=== PATIENT | female | born 1950 | race Caucasian/White ===

== ENCOUNTER 2017-04-03 09:18 | Outpatient (CLI) | payer MEDICARE, OTHER | END 2017-04-03 09:19 | disposition home or self-care (01) | LOC: RT 09:18 | PROVIDERS: ATTEND Internal Medicine | DX: R00.2 Palpitations (principal) | CPT/HCPCS: 93005 ==

== ENCOUNTER 2017-04-27 14:06 | Emergency (ER) | payer MEDICARE, OTHER ==
--- NOTE | 2017-04-27 14:47 | ED Physician Documentation ---
History of Present Illness - Stated complaint Stated Complaint: RAPID HR - Chief complaint Chief Complaint: Cardiac - History obtained from History obtained from: Patient, Family - History of Present Illness Pain level max: 0 Pain level now: 0 Improved by: nothing Worsened by: nothing - Additonal information Additional information: States known history of Afib for 3 years. Is on aspiring and is scheduled to start coumadin or xarelto depending on which is covered by her insurance, has rx but not filled yet. Scheduled echocardiogram on . States has Afib daily. States symptoms started at 0830 today. +fatigue, nausea, lightheaded. no CP. + SOB with exertion. Review of Systems Ten Systems: 10 systems reviewed and negative Constitutional: denies: Fever, Chills Throat: denies: Sore throat Cardiac: denies: Chest pain / pressure, Pedal edema, Calf pain Respiratory: denies: Cough, Wheezing GI: denies: Nausea, Vomiting, Diarrhea : denies: Dysuria Skin: denies: Rash Musculoskeletal: denies: Neck pain, Back pain Neurologic: denies: Focal weakness, Numbness, Headache PD PAST MEDICAL HISTORY - Past Medical History Past Medical History: Yes Cardiovascular: Atrial fibrillation, Murmur Neuro: Tremors - Past Surgical History General: Cholecystectomy HEENT: Tonsil/Adenoidectomy - Present Medications Home Medications: Ambulatory Orders Medication Instructions Recorded Confirmed Aspirin 325 mg PO DAILY 04/27/17 04/27/17 Cholecalciferol (Vitamin D3) 10,000 units PO DAILY 04/27/17 04/27/17 [Vitamin D3] - Allergies Allergies/Adverse Reactions: Allergies Allergy/AdvReac Type Severity Reaction Status Date / Time Penicillins Allergy Rash Verified 04/27/17 14:14 - Social History Does the pt smoke?: No Smoking Status: Never smoker Does the pt drink ETOH?: Yes Does the pt have substance abuse?: No Substance Use and Type: Marijuana - Immunizations Immunizations are current?: Yes PD ED PE NORMAL - Vitals Vital signs reviewed: Yes - General General: Alert and oriented X 3, No acute distress, Well developed/nourished - HEENT HEENT: PERRL, Moist mucous membranes - Neck Neck: Supple, no meningeal sign - Cardiac Cardiac: Other (irregular) - Respiratory Respiratory: No respiratory distress, Clear bilaterally - Abdomen Abdomen: Soft, Non tender, Non distended - Derm Derm: Warm and dry, No rash - Extremities Extremities: No edema, No calf tenderness / cord - Neuro Neuro: Alert and oriented X 3 - Psych Psych: Normal mood, Normal affect Results - Vitals Vitals: Vital Signs - 24 hr 04/27/17 04/27/17 04/27/17 14:10 14:54 15:29 Temperature 36.3 C L Heart Rate 70 120 H 82 Respiratory 16 20 20 Rate Blood Pressure 148/77 H 123/78 116/57 L O2 Saturation 99 100 100 04/27/17 04/27/17 15:59 16:15 Temperature 36.6 C Heart Rate 60 54 L Respiratory 18 22 Rate Blood Pressure 124/72 111/57 L O2 Saturation 100 100 Oxygen O2 Source Room air - EKG (time done) 1432 Rate: Rate (enter#) (95) Rhythm: Atrial fibrillation [place]: Normal QRS: Normal Ischemia: Normal ST segments 1604 Rate: Rate (enter#) (62) Rhythm: NSR [place]: Normal Intervals: Normal [place] QRS: Normal Ischemia: Normal ST segments Computer interpretation: Agree with computer - Labs Labs: Laboratory Tests 04/27/17 04/27/17 04/27/17 14:15 14:15 14:15 WBC 4.4 L RBC 4.64 Hgb 14.1 Hct 41.7 MCV 89.9 MCH 30.3 MCHC 33.8 RDW 13.9 Plt Count 118 L MPV 11.1 H Neut # 2.0 Lymph # 1.8 Door # 0.4 Eos # 0.1 Baso # 0.0 Absolute Nucleated RBC 0.00 Nucleated RBCs 0.1 Sodium 141 Potassium 4.0 Chloride 105 Carbon Dioxide 29 Anion Gap 7.0 BUN 17 Creatinine 0.9 Estimated GFR (MDRD) 63 L Glucose 111 H Calcium 9.2 Total Bilirubin 0.8 AST 25 ALT 21 Alkaline Phosphatase 65 Troponin I < 0.04 Total Protein 6.8 Albumin 4.2 Globulin 2.6 Albumin/Globulin Ratio 1.6 Lipase 17 L - Rads (name of study) cxr Radiology: Prelim report reviewed, EMP read contemporaneously, See rad report ( Normal single view chest. ) PD MEDICAL DECISION MAKING - ED course Complexity details: reviewed results, re-evaluated patient, considered differential, d/w patient, d/w family ED course: Patient is a 67-year-old female with a history of paroxysmal atrial fibrillation. She is normally in sinus rhythm, sinus bradycardia. She is currently undergoing evaluation for her atrial fibrillation and has an echocardiogram scheduled early next week. Because of her history of bradycardia , we chose to use procainamide and this converted her back to a normal sinus rhythm. Her symptoms resolved. She is very well-appearing, nontoxic. Afebrile. No evidence of acute CT. No evidence of acute coronary syndrome. We will have her follow-up with her doctor for further evaluation and care. Patient counseled regarding signs and symptoms for which I believe and urgent re -evaluation would be necessary. Patient with good understanding of and agreement to plan and is comfortable going home at this time This document was made in part using voice recognition software. While efforts are made to proofread this document, sound alike and grammatical errors may occur. Departure - Departure Disposition: 01 Home, Self Care Clinical Impression: Atrial fibrillation Qualifiers: Atrial fibrillation type: paroxysmal Qualified Code(s): I48.0 - Paroxysmal atrial fibrillation Condition: Good Instructions: ED Afib Follow-Up: DOTTY MEJIA MD [Primary Care Provider] - Within 1 week Comments: Make sure to follow up with your doctor for further care of your atrial fibrillation. Discharge Date/Time: 04/27/17 16:21
[2017-04-27] MEDS ORDERED: PROCAINAMIDE 1,000 MG in SODIUM CHLORIDE 0.9% 240 ML IV STA (14:58)
[2017-04-27 15:06] LABS: BASOPHILS % (AUTO) 1.1 %; EOSINOPHILS # (AUTO) 0.1 10^3/uL (0.0-0.7); EOSINOPHILS % (AUTO) 1.8 %; HCT - HEMATOCRIT 41.7 % (37.0-47.0); HGB - HEMOGLOBIN 14.1 g/dL (12.0-16.0); LYMPHOCYTES # (AUTO) 1.8 10^3/uL (1.5-3.5); LYMPHOCYTES % (AUTO) 41.2 %; MEAN CORPUSCULAR HEMOGLOBIN 30.3 pg (27.0-31.0); MEAN CORPUSCULAR HGB CONC 33.8 g/dL (32.0-36.0); MEAN CORPUSCULAR VOLUME 89.9 fL (81.0-99.0); MEAN PLATELET VOLUME 11.1 fL (7.9-10.8); MONOCYTES # (AUTO) 0.4 10^3/uL (0.0-1.0); MONOCYTES % (AUTO) 9.3 %; NEUTROPHILS % (AUTO) 46.6 %; NUCLEATED RED BLOOD CELLS AUTO 0.1 /100WBC; RED BLOOD COUNT 4.64 10^6/uL (4.20-5.40); RED CELL DISTRIBUTION WIDTH 13.9 % (12.0-15.0); UNCORRECTED WHITE BLOOD COUNT 4.4 x10^3/uL; WHITE BLOOD COUNT 4.4 x10^3/uL (4.8-10.8)
[2017-04-27 15:13] LABS: ALBUMIN/GLOBULIN RATIO 1.6 (1.0-2.2); BILIRUBIN,TOTAL 0.8 mg/dL (0.2-1.0); CALCIUM 9.2 mg/dL (8.5-10.3); CREATININE 0.9 mg/dL (0.4-1.0); TOTAL PROTEIN 6.8 g/dL (6.7-8.2)
--- NOTE | 2017-04-27 15:26 | XRAY Preliminary Report ---
Exam: XR Chest 1 View IMPRESSION: Normal single view chest. [facility] SITE ID: [id number]
--- NOTE | 2017-04-27 15:28 | XRAY Report ---
EXAM: CHEST RADIOGRAPHY EXAM DATE: 04/27/2017 03:10 PM. CLINICAL HISTORY: Dyspnea. COMPARISON: None. TECHNIQUE: 1 view. FINDINGS: Lungs/Pleura: No focal opacities evident. No pleural effusion. No pneumothorax. No significant pulmon megan vascular congestion or edema. Mediastinum: Within exam limitations, cardiomediastinal contour is normal. Other: None. IMPRESSION: Normal single view chest. [facility] Referring Provider Line: [phone] SITE ID: [id number]
[2017-04-27 16:17] VITALS: BP 111/57
== END 2017-04-27 16:21 | disposition home or self-care (01) ==
LOC: ED 14:06
DX: I48.0 Paroxysmal atrial fibrillation (principal); R94.31 Abnormal electrocardiogram [ECG] [EKG]; R25.1 Tremor, unspecified; Z79.82 Long term (current) use of aspirin
CPT/HCPCS: 36415; 71010; 80053; 83690; 84484; 85025; 93005; 96374; 99283; 99285

== ENCOUNTER 2017-04-30 11:06 | Outpatient (CLI) | payer MEDICARE, OTHER | END 2017-04-30 11:07 | disposition home or self-care (01) | LOC: LAB.F 11:06 | PROVIDERS: ATTEND Internal Medicine | DX: I48.91 Unspecified atrial fibrillation (principal) | CPT/HCPCS: 85610 ==

== ENCOUNTER 2017-05-01 09:18 | Outpatient (CLI) | payer MEDICARE, OTHER | END 2017-05-01 09:19 | disposition home or self-care (01) | LOC: DI 09:18 | PROVIDERS: ATTEND Internal Medicine | DX: I48.91 Unspecified atrial fibrillation (principal) | CPT/HCPCS: 93306 ==

== ENCOUNTER 2017-05-04 11:06 | Outpatient (CLI) | payer MEDICARE, OTHER | END 2017-05-04 11:07 | disposition home or self-care (01) | LOC: LAB.F 11:06 | PROVIDERS: ATTEND Internal Medicine | DX: I48.91 Unspecified atrial fibrillation (principal) | CPT/HCPCS: 85610 ==

== ENCOUNTER 2017-05-09 14:52 | Outpatient (CLI) | payer MEDICARE, OTHER | END 2017-05-09 14:53 | disposition home or self-care (01) | LOC: LAB.F 14:52 | PROVIDERS: ATTEND Internal Medicine | DX: I48.91 Unspecified atrial fibrillation (principal) | CPT/HCPCS: 85610 ==

== ENCOUNTER 2017-05-18 14:05 | Outpatient (CLI) | payer MEDICARE, OTHER | END 2017-05-18 14:06 | disposition home or self-care (01) | LOC: LAB.F 14:05 | PROVIDERS: ATTEND Internal Medicine | DX: I48.91 Unspecified atrial fibrillation (principal) | CPT/HCPCS: 85610 ==

== ENCOUNTER 2017-05-25 15:12 | Outpatient (CLI) | payer MEDICARE, OTHER | END 2017-05-25 15:13 | disposition home or self-care (01) | LOC: LAB.F 15:12 | PROVIDERS: ATTEND Internal Medicine | DX: I48.91 Unspecified atrial fibrillation (principal) | CPT/HCPCS: 85610 ==

== ENCOUNTER 2017-06-05 13:05 | Outpatient (CLI) | payer MEDICARE, OTHER | END 2017-06-05 13:06 | disposition home or self-care (01) | LOC: LAB.F 13:05 | PROVIDERS: ATTEND Internal Medicine | DX: I48.91 Unspecified atrial fibrillation (principal) | CPT/HCPCS: 85610 ==

== ENCOUNTER 2017-06-14 13:30 | Outpatient (CLI) | payer MEDICARE, OTHER | END 2017-06-14 13:31 | disposition home or self-care (01) | LOC: LAB.F 13:30 | PROVIDERS: ATTEND Internal Medicine | DX: I48.91 Unspecified atrial fibrillation (principal) | CPT/HCPCS: 85610 ==

== ENCOUNTER 2017-06-19 10:29 | Outpatient (CLI) | payer MEDICARE, OTHER | END 2017-06-19 10:30 | disposition home or self-care (01) | LOC: RT 10:29 | PROVIDERS: ATTEND Internal Medicine Cardiovascular Disease | DX: I48.0 Paroxysmal atrial fibrillation (principal) | CPT/HCPCS: 93005 ==

== ENCOUNTER 2017-06-21 15:06 | Outpatient (CLI) | payer MEDICARE, OTHER | END 2017-06-21 15:07 | disposition home or self-care (01) | LOC: LAB.F 15:06 | PROVIDERS: ATTEND Internal Medicine | DX: I48.91 Unspecified atrial fibrillation (principal) | CPT/HCPCS: 85610 ==

== ENCOUNTER 2017-07-16 14:53 | Outpatient (CLI) | payer MEDICARE, OTHER | END 2017-07-16 14:54 | disposition home or self-care (01) | LOC: LAB.F 14:53 | PROVIDERS: ATTEND Internal Medicine | DX: I48.91 Unspecified atrial fibrillation (principal) | CPT/HCPCS: 85610 ==

== ENCOUNTER 2017-08-16 13:29 | Outpatient (CLI) | payer MEDICARE, OTHER | END 2017-08-16 13:30 | disposition home or self-care (01) | LOC: LAB.F 13:29 | PROVIDERS: ATTEND Internal Medicine | DX: I48.91 Unspecified atrial fibrillation (principal) | CPT/HCPCS: 85610 ==

== ENCOUNTER 2017-08-28 13:01 | Outpatient (CLI) | payer MEDICARE, OTHER | END 2017-08-28 13:02 | disposition home or self-care (01) | LOC: LAB.F 13:01 | PROVIDERS: ATTEND Internal Medicine | DX: I48.91 Unspecified atrial fibrillation (principal) | CPT/HCPCS: 85610 ==

== ENCOUNTER 2017-09-25 13:03 | Outpatient (CLI) | payer MEDICARE, OTHER | END 2017-09-25 13:04 | disposition home or self-care (01) | LOC: LAB.F 13:03 | PROVIDERS: ATTEND Internal Medicine | DX: I48.91 Unspecified atrial fibrillation (principal) | CPT/HCPCS: 85610 ==

== ENCOUNTER 2017-11-21 10:52 | Outpatient (CLI) | payer MEDICARE, OTHER | END 2017-11-21 10:53 | disposition home or self-care (01) | LOC: LAB.F 10:52 | PROVIDERS: ATTEND Internal Medicine | DX: I48.91 Unspecified atrial fibrillation (principal) | CPT/HCPCS: 85610 ==

== ENCOUNTER 2018-01-11 11:53 | Outpatient (CLI) | payer MEDICARE, OTHER | END 2018-01-11 11:54 | disposition home or self-care (01) | LOC: LAB.F 11:53 | PROVIDERS: ATTEND Internal Medicine | DX: I48.91 Unspecified atrial fibrillation (principal) | CPT/HCPCS: 85610 ==

== ENCOUNTER 2018-01-17 13:05 | Outpatient (CLI) | payer MEDICARE, OTHER | END 2018-01-17 13:06 | disposition home or self-care (01) | LOC: RT 13:05 | PROVIDERS: ATTEND Internal Medicine Cardiovascular Disease | DX: I48.91 Unspecified atrial fibrillation (principal) | CPT/HCPCS: 93005 ==

== ENCOUNTER 2018-02-04 11:54 | Outpatient (CLI) | payer MEDICARE, OTHER | END 2018-02-04 11:55 | disposition home or self-care (01) | LOC: LAB.F 11:54 | PROVIDERS: ATTEND Internal Medicine | DX: I48.91 Unspecified atrial fibrillation (principal) | CPT/HCPCS: 85610 ==

== ENCOUNTER 2018-02-12 15:09 | Outpatient (CLI) | payer MEDICARE, OTHER | END 2018-02-12 15:10 | disposition home or self-care (01) | LOC: LAB.F 15:09 | PROVIDERS: ATTEND Internal Medicine | DX: I48.91 Unspecified atrial fibrillation (principal) | CPT/HCPCS: 85610 ==

== ENCOUNTER 2018-02-20 11:16 | Outpatient (CLI) | payer MEDICARE, OTHER ==
--- NOTE | 2018-02-21 10:53 | XRAY Report ---
THREE VIEW BILATERAL FEET: 02/20/2018 CLINICAL INDICATION: Acute bilateral pain. FINDINGS: AP, lateral, oblique views of the bilateral feet demonstrate mild bilateral osteoarthritis, with plantar and posterior calcaneal spurring. There is no evidence of acute fracture or dislocation. No radiopaque foreign body is seen in the soft tissues. IMPRESSION: MILD OSTEOARTHRITIS. NO EVIDENCE OF FRACTURE. TD: 02/21/2018 10:52
== END 2018-02-20 11:17 | disposition home or self-care (01) ==
LOC: LAB.F 11:16
PROVIDERS: ATTEND Internal Medicine
DX: I48.91 Unspecified atrial fibrillation (principal); M79.672 Pain in left foot; M79.671 Pain in right foot
CPT/HCPCS: 85610

== ENCOUNTER 2018-02-28 11:49 | Outpatient (CLI) | payer MEDICARE, OTHER | END 2018-02-28 11:50 | disposition home or self-care (01) | LOC: LAB.F 11:49 | PROVIDERS: ATTEND Internal Medicine | DX: I48.91 Unspecified atrial fibrillation (principal) | CPT/HCPCS: 85610 ==

== ENCOUNTER 2018-03-15 12:08 | Outpatient (CLI) | payer MEDICARE, OTHER | END 2018-03-15 12:09 | disposition home or self-care (01) | LOC: LAB.F 12:08 | PROVIDERS: ATTEND Internal Medicine | DX: I48.91 Unspecified atrial fibrillation (principal) | CPT/HCPCS: 85610 ==

== ENCOUNTER 2018-03-29 13:02 | Outpatient (CLI) | payer MEDICARE, OTHER | END 2018-03-29 13:03 | disposition home or self-care (01) | LOC: LAB.F 13:02 | PROVIDERS: ATTEND Internal Medicine | DX: I48.91 Unspecified atrial fibrillation (principal) | CPT/HCPCS: 85610 ==

== ENCOUNTER 2018-05-03 10:15 | Outpatient (CLI) | payer MEDICARE, OTHER | END 2018-05-03 10:16 | disposition home or self-care (01) | LOC: LAB.F 10:15 | PROVIDERS: ATTEND Internal Medicine | DX: I48.91 Unspecified atrial fibrillation (principal) | CPT/HCPCS: 85610 ==

== ENCOUNTER 2018-05-23 13:28 | Outpatient (CLI) | payer MEDICARE, OTHER | END 2018-05-23 13:29 | disposition home or self-care (01) | LOC: LAB.F 13:28 | PROVIDERS: ATTEND Internal Medicine | DX: I48.91 Unspecified atrial fibrillation (principal) | CPT/HCPCS: 85610 ==

== ENCOUNTER 2018-07-12 10:49 | Outpatient (CLI) | payer MEDICARE, OTHER | END 2018-07-12 10:50 | disposition home or self-care (01) | LOC: LAB.F 10:49 | PROVIDERS: ATTEND Internal Medicine | DX: I48.91 Unspecified atrial fibrillation (principal) | CPT/HCPCS: 85610 ==

== ENCOUNTER 2018-08-22 15:46 | Outpatient (CLI) | payer MEDICARE, OTHER | END 2018-08-22 15:47 | disposition home or self-care (01) | LOC: RT 15:46 | PROVIDERS: ATTEND Internal Medicine Cardiovascular Disease | DX: I48.91 Unspecified atrial fibrillation (principal); Z79.899 Other long term (current) drug therapy | CPT/HCPCS: 93005 ==

== ENCOUNTER 2018-09-06 13:58 | Outpatient (CLI) | payer MEDICARE, OTHER | END 2018-09-06 13:59 | disposition home or self-care (01) | LOC: LAB.F 13:58 | PROVIDERS: ATTEND Internal Medicine | DX: I48.91 Unspecified atrial fibrillation (principal) | CPT/HCPCS: 85610 ==

== ENCOUNTER 2018-10-03 13:22 | Outpatient (CLI) | payer MEDICARE, OTHER | END 2018-10-03 13:23 | disposition home or self-care (01) | LOC: LAB.F 13:22 | PROVIDERS: ATTEND Internal Medicine | DX: I48.91 Unspecified atrial fibrillation (principal) | CPT/HCPCS: 85610 ==

== ENCOUNTER 2018-10-18 19:49 | Outpatient (CLI) | payer MEDICARE, OTHER | END 2018-10-18 19:50 | disposition critical access hospital (66) | LOC: EMS 19:49 | PROVIDERS: ATTEND Surgery | DX: S99.912A Unspecified injury of left ankle, initial encounter (principal); W10.8XXA Fall (on) (from) other stairs and steps, initial encounter; Y93.01 Activity, walking, marching and hiking; Y92.89 Other specified places as the place of occurrence of the external cause | CPT/HCPCS: A0425; A0427 ==

== ENCOUNTER 2018-10-18 20:21 | Emergency (ER) | payer MEDICARE, OTHER ==
[2018-10-18] MEDS ORDERED: HYDROmorphone 1 MG/ML CARPUJECT IVP STA (20:26)
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
[2018-10-18 20:44] LABS: BASOPHILS % (AUTO) 0.7 %; EOSINOPHILS # (AUTO) 0.1 10^3/uL (0.0-0.7); HGB - HEMOGLOBIN 13.4 g/dL (12.0-16.0); LYMPHOCYTES # (AUTO) 1.3 10^3/uL (1.5-3.5); LYMPHOCYTES % (AUTO) 22.1 %; MEAN CORPUSCULAR HEMOGLOBIN 29.4 pg (27.0-31.0); MEAN CORPUSCULAR HGB CONC 32.3 g/dL (32.0-36.0); MEAN PLATELET VOLUME 10.3 fL (7.9-10.8); MONOCYTES # (AUTO) 0.4 10^3/uL (0.0-1.0); NEUTROPHILS % (AUTO) 69.2 %; PLT - PLATELET COUNT 138 10^3/uL (130-450); RED BLOOD COUNT 4.55 10^6/uL (4.20-5.40); RED CELL DISTRIBUTION WIDTH 14.5 % (12.0-15.0); WHITE BLOOD COUNT 5.8 x10^3/uL (4.8-10.8)
[2018-10-18 20:50] LABS: PT - PROTHROMBIN TIME 53.6 secs (9.9-12.6)
[2018-10-18 20:56] LABS: ALBUMIN 3.9 g/dL (3.2-5.5); ALBUMIN/GLOBULIN RATIO 1.3 (1.0-2.2); BILIRUBIN,TOTAL 0.4 mg/dL (0.2-1.0); CALCIUM 8.8 mg/dL (8.5-10.3); TOTAL PROTEIN 6.8 g/dL (6.7-8.2)
[2018-10-18] MEDS ORDERED: ONDANSETRON 4 MG/2 ML VIAL IVP STA (20:56)
[2018-10-18 21:00] LABS: INR 4.8 (0.8-1.2)
--- NOTE | 2018-10-18 21:18 | XRAY Report ---
Reason: ankle inj Procedure Date: 10/18/2018 Accession Number: [id number] / [id number] Procedure: XR - Ankle 3 View LT CPT Code: FULL RESULT: EXAM: LEFT ANKLE RADIOGRAPHY EXAM DATE: 10/18/2018 08:44 PM. CLINICAL HISTORY: Ankle inj. Pain. COMPARISON: None. TECHNIQUE: 3 views. FINDINGS: Bones: There are small approximately 4 mm avulsion fractures which appear to arise from the tip of the lateral malleolus and from the medial aspect of the talus at the deltoid insertion. No other fracture or focal bone lesion is identified. Joints: The mortise view was not obtained. There is mild craniocaudal widening of the lateral aspect of the tibiotalar articulation. Soft Tissues: Mild medial and moderate lateral and anterior ankle soft tissue swelling. IMPRESSION: Unstable left ankle injury with small avulsion fractures from the talofibular ligament insertion at the tip of the lateral malleolus and at the deltoid ligament insertion on the medial aspect of the talus. There is slight craniocaudal widening of the lateral aspect of the ankle joint. [facility]
[2018-10-18] MEDS ORDERED: METOCLOPRAMIDE 10 MG/2 ML VIAL IVP STA (21:51)
[2018-10-18] MEDS ORDERED: oxyCODONE/ACET 5/325 Prepack 4 PO STA (22:22)
[2018-10-18] MEDS ORDERED: ONDANSETRON ODT 4 MG Prepack 2 TL STA (22:22)
[2018-10-18] MEDS ORDERED: SCOPOLAMINE PATCH TOP STA (22:28)
[2018-10-18 23:42] VITALS: BP 172/77
== END 2018-10-18 23:42 | disposition home or self-care (01) ==
LOC: EDUNIT# → ED 20:21
DX: S82.65XA Nondisplaced fracture of lateral malleolus of left fibula, initial encounter for closed fracture (principal); S92.155A Nondisplaced avulsion fracture (chip fracture) of left talus, initial encounter for closed fracture; R79.1 Abnormal coagulation profile; I48.91 Unspecified atrial fibrillation; Z79.01 Long term (current) use of anticoagulants; G25.0 Essential tremor; X50.1XXA Overexertion from prolonged static or awkward postures, initial encounter; W10.9XXA Fall (on) (from) unspecified stairs and steps, initial encounter
CPT/HCPCS: 29515; 36415; 73610; 80053; 83690; 85025; 85610; 96374; 96375; 99283; J1170; J2765; J3490

== ENCOUNTER 2018-10-28 11:30 | Outpatient (CLI) | payer MEDICARE, OTHER ==
[2018-10-28 15:57] LABS: ALBUMIN 3.7 g/dL (3.2-5.5); ALBUMIN/GLOBULIN RATIO 1.2 (1.0-2.2); BILIRUBIN,TOTAL 1.4 mg/dL (0.2-1.0); CALCIUM 8.9 mg/dL (8.5-10.3); CREATININE 0.8 mg/dL (0.4-1.0); TOTAL PROTEIN 6.8 g/dL (6.7-8.2)
== END 2018-10-28 23:59 | disposition home or self-care (01) ==
LOC: LAB.N 11:30
PROVIDERS: ATTEND Internal Medicine
DX: I48.91 Unspecified atrial fibrillation (principal); R79.1 Abnormal coagulation profile
CPT/HCPCS: 36415; 80053; 85610

== ENCOUNTER 2018-10-30 11:53 | Outpatient (CLI) | payer MEDICARE, OTHER | END 2018-10-30 23:59 | disposition home or self-care (01) | LOC: LAB.F 11:53 | PROVIDERS: ATTEND Internal Medicine | DX: I48.91 Unspecified atrial fibrillation (principal) | CPT/HCPCS: 85610 ==

== ENCOUNTER 2018-11-02 15:33 | Emergency (ER) | payer MEDICARE, OTHER ==
[2018-11-02] MEDS ORDERED: VANCOMYCIN INJ 2 GM in SODIUM CHLORIDE 0.9% 500 ML IV STA (16:03)
--- NOTE | 2018-11-02 16:05 | ED Physician Documentation ---
PD HPI LOWER EXT INJURY - Stated complaint Stated Complaint: SWOLLEN/RED FOOT/SENT BY DOC - Chief complaint Chief Complaint: Ext Problem - History obtained from History obtained from: Patient - History of Present Illness PD HPI LOW EXT INJURY LOCATION: Left (She had an injury of her left ankle about 2 weeks ago. Subsequently found to have small avulsion fractures. She developed large fracture bridge blisters which became infected. She was started on Keflex 4 days ago but has not seen significant improvement in the subsequent 4 days. She did have fevers when the ankle became infected but does not anymore. Was referred by her orthopedist to the emergency department for potential IV antibiotics if it did not improve on the Keflex.) Review of Systems Ten Systems: 10 systems reviewed and negative Constitutional: denies: Fever, Chills Throat: reports: Reviewed and negative Cardiac: reports: Reviewed and negative PD PAST MEDICAL HISTORY - Past Medical History Past Medical History: No Cardiovascular: Atrial fibrillation, Murmur Respiratory: None Neuro: None Endocrine/Autoimmune: None GI: None [employer]: None : None HEENT: None Psych: None Musculoskeletal: None Derm: None - Past Surgical History Past Surgical History: No General: Cholecystectomy HEENT: Tonsil/Adenoidectomy - Present Medications Home Medications: Ambulatory Orders Medication Instructions Recorded Confirmed Cholecalciferol (Vitamin D3) 10,000 units PO DAILY 04/27/17 04/27/17 [Vitamin D3] Flecainide [Tambocar] 1 tab PO BID 10/18/18 10/18/18 Knee Scooter 1 unit TD ONCE #1 10/18/18 Oxycodone HCl/Acetaminophen 1 - 2 each PO Q6H PRN #14 tablet 10/18/18 [Percocet 5-325 mg Tablet] Warfarin [Coumadin] 2 tab PO DAILY 10/18/18 10/18/18 buPROPion [Wellbutrin Xl] 150 mg PO DAILY 10/18/18 10/18/18 Bisacodyl [Dulcolax] 1 tab PO DAILY 11/02/18 11/02/18 Cephalexin [Keflex] 1 cap PO DAILY 11/02/18 11/02/18 Sulfamethoxazole/Trimethoprim 1 each PO BID #20 tablet 11/02/18 [Sulfamethoxazole-Tmp Ds Tablet] - Allergies Allergies/Adverse Reactions: Allergies Allergy/AdvReac Type Severity Reaction Status Date / Time Penicillins Allergy Rash Verified 10/18/18 20:29 hydromorphone [From Dilaudid] AdvReac Nausea Verified 11/02/18 15:42 - Social History Does the pt smoke?: No Smoking Status: Never smoker Does the pt drink ETOH?: Yes Does the pt have substance abuse?: No - Immunizations Immunizations are current?: Yes Immunizations: TDAP >10years/unknown - POLST Patient has POLST: No PD ED PE NORMAL - Vitals Vital signs reviewed: Yes - General General: Alert and oriented X 3, No acute distress - HEENT HEENT: PERRL, EOMI - Neck Neck: Supple, no meningeal sign - Cardiac Cardiac: RRR, No murmur - Respiratory Respiratory: No respiratory distress, Clear bilaterally - Abdomen Abdomen: Soft, Non tender - Extremities Extremities: Other (There are denuded fracture blisters across the top of the left foot and the lateral left ankle with a large but shallow ulcer over the lateral left ankle. There is cellulitis of the foot and ankle but no cellulitis above the ankle.) - Neuro Neuro: Alert and oriented X 3, Normal speech - Psych Psych: Normal mood, Normal affect Results - Vitals Vitals: Vital Signs - 24 hr 11/02/18 11/02/18 15:38 15:53 Temperature 36.4 C L Heart Rate 83 77 Respiratory 16 18 Rate Blood Pressure 142/85 H 111/78 O2 Saturation 100 98 Oxygen O2 Source Room air - Labs Labs: Laboratory Tests 11/02/18 11/02/18 11/02/18 16:17 16:17 16:17 WBC 5.1 RBC 4.12 L Hgb 12.3 Hct 37.7 MCV 91.4 MCH 29.7 MCHC 32.5 RDW 14.8 Plt Count 248 MPV 8.5 Neut # (Auto) 3.5 Lymph # (Auto) 1.0 L [place] # (Auto) 0.4 Eos # (Auto) 0.1 Baso # (Auto) 0.0 Absolute Nucleated RBC 0.00 Nucleated RBC % 0.0 ESR 17 PT INR Sodium 139 Potassium 3.8 Chloride 105 Carbon Dioxide 28 Anion Gap 6.0 BUN 20 Creatinine 0.8 Estimated GFR (MDRD) 72 L Glucose 131 H Calcium 9.0 Total Bilirubin 1.0 AST 24 ALT 21 Alkaline Phosphatase 63 C-Reactive Protein Total Protein 6.9 Albumin 4.0 Globulin 2.9 Albumin/Globulin Ratio 1.4 Lipase 24 11/02/18 11/02/18 16:17 16:17 WBC RBC Hgb Hct MCV MCH MCHC RDW Plt Count MPV Neut # (Auto) Lymph # (Auto) [place] # (Auto) Eos # (Auto) Baso # (Auto) Absolute Nucleated RBC Nucleated RBC % ESR PT 14.0 H INR 1.2 Sodium Potassium Chloride Carbon Dioxide Anion Gap BUN Creatinine Estimated GFR (MDRD) Glucose Calcium Total Bilirubin AST ALT Alkaline Phosphatase C-Reactive Protein 1.9 H Total Protein Albumin Globulin Albumin/Globulin Ratio Lipase PD MEDICAL DECISION MAKING - ED course ED course: 68-year-old woman with fracture blister related cellulitis of the lower extremities not improving but not worsening on day 4 of Keflex. Her blood work is reassuring without elevated white count or significantly elevated inflammatory markers. She was administered 1 dose of vancomycin here and a wound culture was done. We discussed admission but we will trial antistaphylococcal coverage in addition to her Keflex. Departure - Departure Disposition: 01 Home, Self Care Clinical Impression: Cellulitis Qualifiers: Site of cellulitis: extremity Site of cellulitis of extremity: lower extremity Laterality: left Qualified Code(s): L03.116 - Cellulitis of left lower limb Condition: Good Record reviewed to determine appropriate education?: Yes Instructions: Cellulitis Dc Prescriptions: Sulfamethoxazole/Trimethoprim [Sulfamethoxazole-Tmp Ds Tablet] 1 each PO BID #20 tablet Comments: We are performing a wound culture, the results should be done in 48-72 hours. If antibiotic change is necessary we will call you. Return if worse in the meantime, especially if you develop increased pain, fevers, cannot keep down the medication. Otherwise follow-up with your physician in approximately 2-3 days.
[2018-11-02 16:23] LABS: BASOPHILS % (AUTO) 0.6 %; EOSINOPHILS # (AUTO) 0.1 10^3/uL (0.0-0.7); EOSINOPHILS % (AUTO) 1.9 %; HGB - HEMOGLOBIN 12.3 g/dL (12.0-16.0); LYMPHOCYTES % (AUTO) 19.3 %; MEAN CORPUSCULAR HEMOGLOBIN 29.7 pg (27.0-31.0); MEAN CORPUSCULAR HGB CONC 32.5 g/dL (32.0-36.0); MEAN CORPUSCULAR VOLUME 91.4 fL (81.0-99.0); MEAN PLATELET VOLUME 8.5 fL (7.9-10.8); MONOCYTES # (AUTO) 0.4 10^3/uL (0.0-1.0); MONOCYTES % (AUTO) 8.8 %; NEUTROPHILS # (AUTO) 3.5 10^3/uL (1.5-6.6); NEUTROPHILS % (AUTO) 69.4 %; PLT - PLATELET COUNT 248 10^3/uL (130-450); RED BLOOD COUNT 4.12 10^6/uL (4.20-5.40); RED CELL DISTRIBUTION WIDTH 14.8 % (12.0-15.0); WHITE BLOOD COUNT 5.1 x10^3/uL (4.8-10.8)
[2018-11-02 16:38] LABS: ALBUMIN/GLOBULIN RATIO 1.4 (1.0-2.2); CREATININE 0.8 mg/dL (0.4-1.0); TOTAL PROTEIN 6.9 g/dL (6.7-8.2)
[2018-11-02] MEDS ORDERED: oxyCODONE 5 MG TABLET PO STA (17:18)
[2018-11-02 17:34] LABS: INR 1.2 (0.8-1.2)
[2018-11-02 22:28] VITALS: BP 137/62
== END 2018-11-02 19:22 | disposition home or self-care (01) ==
LOC: ED 15:33
DX: L03.116 Cellulitis of left lower limb (principal); L97.329 Non-pressure chronic ulcer of left ankle with unspecified severity
CPT/HCPCS: 36415; 80053; 81599; 83690; 85025; 85610; 85651; 86140; 87070; 87077; 87205; 96365; 96366; 99283

== ENCOUNTER 2018-11-11 14:03 | Outpatient (CLI) | payer MEDICARE, OTHER ==
[2018-11-11 20:50] LABS: CREATININE 1.1 mg/dL (0.4-1.0)
== END 2018-11-11 14:04 | disposition home or self-care (01) ==
LOC: LAB.F 14:03
PROVIDERS: ATTEND Orthopaedic Surgery Foot and Ankle Surgery
DX: Z01.818 Encounter for other preprocedural examination (principal); I48.91 Unspecified atrial fibrillation
CPT/HCPCS: 36415; 82565; 84520; 85610

== ENCOUNTER 2018-11-26 12:02 | Outpatient (CLI) | payer MEDICARE, OTHER | END 2018-11-26 12:03 | disposition home or self-care (01) | LOC: LAB 12:02 | PROVIDERS: ATTEND Internal Medicine | DX: I48.91 Unspecified atrial fibrillation (principal) | CPT/HCPCS: 85610 ==

== ENCOUNTER 2018-12-12 11:17 | Outpatient (CLI) | payer MEDICARE, OTHER | END 2018-12-12 11:18 | disposition home or self-care (01) | LOC: LAB 11:17 | PROVIDERS: ATTEND Internal Medicine | DX: I48.91 Unspecified atrial fibrillation (principal) | CPT/HCPCS: 85610 ==

== ENCOUNTER 2018-12-24 11:57 | Outpatient (CLI) | payer MEDICARE, OTHER | END 2018-12-24 11:58 | disposition home or self-care (01) | LOC: LAB 11:57 | PROVIDERS: ATTEND Internal Medicine | DX: I48.91 Unspecified atrial fibrillation (principal) | CPT/HCPCS: 85610 ==

== ENCOUNTER 2019-01-07 11:41 | Outpatient (CLI) | payer MEDICARE, OTHER | END 2019-01-07 11:42 | disposition home or self-care (01) | LOC: LAB 11:41 | PROVIDERS: ATTEND Internal Medicine | DX: I48.91 Unspecified atrial fibrillation (principal) | CPT/HCPCS: 85610 ==

== ENCOUNTER 2019-02-05 10:54 | Outpatient (CLI) | payer MEDICARE, OTHER | END 2019-02-05 10:55 | disposition home or self-care (01) | LOC: LAB 10:54 | PROVIDERS: ATTEND Internal Medicine | DX: I48.91 Unspecified atrial fibrillation (principal) | CPT/HCPCS: 85610 ==

== ENCOUNTER 2019-02-21 11:22 | Outpatient (CLI) | payer MEDICARE, OTHER | END 2019-02-21 11:23 | disposition home or self-care (01) | LOC: LAB.F 11:22 | PROVIDERS: ATTEND Internal Medicine | DX: I48.91 Unspecified atrial fibrillation (principal) | CPT/HCPCS: 85610 ==

== ENCOUNTER 2019-06-25 12:47 | Outpatient (CLI) | payer MEDICARE, OTHER ==
[2019-06-25 14:06] VITALS: BP 120/70
--- NOTE | 2019-06-25 14:06 | SLEEP CARE CONSULTATION ---
Information from patient questionnaire entered by Earlene Singh. I have reviewed and concur with the information entered by Earlene Singh. This document represents the service I personally performed and the decisions made by me, Marianne Armas, RN, MSN, ELECTROCHEMIST. History of Present Illness Reason for Visit: New patient Chief Complaint: reports: Insomnia, Snoring, Excessive daytime sleepiness, Fatigue, Frequent awakenings at night, Other (increase in naps) Duration of Symptoms: 1 year Usual bedtime: 12:00 am Time it takes to fall asleep: 30-60 mins Snores at night: Yes (can be heard outside of room) Observed to quit breathing while asleep: No (partner sleeps separately and different shifts) Sleeps alone due to snoring: No Number of times waking at night: 2 Reasons for waking at night: reports: Snoring (occasionally), Bathroom, Other (dry mouth) Toss, Turn, or Twitch while sleeping: No Recalls having dreams: Yes Usually gets out of bed at: 8:00-10:00 am Feels refreshed in the morning: No Morning headache: No Sleepy or fatigued during the day: Yes Ever fallen asleep while driving: No Takes day naps: Yes (sometimes - 20-60 minutes 2 times a week or more) Dreams during day naps: No Prior sleep studies: No - Parasomnia Symptoms Ever been unable to move upon waking from sleep: No Walks in sleep: No Talks in sleep: No Ever acted out dreams in sleep: No Ever felt weak in the knees when startled or emotional: No Bothered by creepy, crawly, restless sensations in legs: No Problems with memory or concentration: No Subjective Initial [place] Sleepiness Scale score: 5 Past Medical History Past Medical History: reports: Arthritis, Arrythmia (atrial fibrillation), Other (left ankle injury from fall with severe strain and fractures and then cast infection with residual swelling and in physical therapy, essential tremor) Social History The patient's occupation is retired. Patient is and lives in [place]. Have you smoked in the past 12 months: No Alcohol use: No Caffeine use: No Family History Family history of sleep disordered breathing: No Allergies and Home Medications Known drug allergies: No Home medication list reviewed: Yes Allergy and home medication list: warafin 7.5mg 6days a week and 10mg 1 day a week. Flecainide 50mg twice daily. Review of Systems Weight gain over past 5 years: 50 Weight loss over past 5 years: 11 Cardiovascular: reports: palpitations, irregular heart rate or pulse Musculoskeletal: reports: joint pain, joint swelling (left ankle ) Physical Exam Blood Pressure: 120/70 Cuff size: long Heart Rate: 56 O2 Saturation: 99 Height: 5 ft 7 in HEENT: No craniofacial malformation Nostrils: partially obstructed Turbinates: swollen Septum: midline Mouth and throat: narrow oropharynx Soft palate: long Hard palate: normal Uvula: normal Uvula visualization: 25% Mallampati Class III Tongue: normal in size Tonsils: absent bilaterally Chin and jaw: normal size and position Neck: normal w/o lymphadenopathy or thyromegaly Heart: regular rate and rhythm Lungs: clear bilaterally Abdomen: soft Extremities: no edema or clubbing Neurologic: intact Impression and Plan 1. Suspected Obstructive Sleep Apnea-Hypopnea Syndrome, as loud and irregular snoring, frequent awakening during the night, insomnia,nocturia, unrefreshed sleep, cognitive impairment, and excessive daytime sleepiness requiring a nap a few times a week. Narrow oropharynx and obesity are common predisposing factors for obstructive sleep apnea-hypopnea syndrome. Risk of sleep disordered breathing is doubled in atrial fibrillation patients due to nocturnal hypoxemia, sympathetic nerve activity and hemodynamic stress. I recommend proceeding to polysomnography to confirm the diagnosis and to assess severity. If the patient has significant sleep disordered breathing, a manual CPAP titration study will also be performed to find the optimal treatment pressure. I informed the patient of what the sleep studies involve and after some discussion, obtained agreement to proceed. The pathophysiology of obstructive sleep apnea-hypopnea syndrome was discussed with the patient and health risks of cardiovascular and cerebrovascular disease if not treated. AASM brochure for obstructive sleep apnea-hypopnea syndrome given and reviewed. Risks of drowsy driving discussed in detail and patient advised to avoid long distance driving and to well puller at the first sign of drowsiness. Patient agreed to plan. 2. Insomnia, difficulty initiating sleep could be due to irregular wake time. Patient explained how her current sleep schedule can contribute to her insomnia and advised to regulate her wake time. * Schedule polysomnography +- manual CPAP titration study * Avoid long distance driving or driving when feeling sleepy. * Avoid alcohol, sedative and muscle relaxant around bedtime. * Attempt to lose weight. * Regulate regular wake time. * Review instructions provided by trained office staff on how to prepare for the sleep study. * Return for follow-up after sleep study completed to review results and determine treatment. I spent 100% of this 35 minute visit face to face with the patient with greater than 50% of this was spent time counseling the patient and coordination of care.
== END 2019-06-25 12:48 | disposition home or self-care (01) ==
LOC: SC 12:47
PROVIDERS: ATTEND Nurse Practitioner Family
DX: G47.10 Hypersomnia, unspecified (principal); G47.8 Other sleep disorders; R41.89 Other symptoms and signs involving cognitive functions and awareness; G47.00 Insomnia, unspecified; R06.83 Snoring; R35.1 Nocturia
CPT/HCPCS: 99203; G0463; 99212

== ENCOUNTER 2019-10-09 16:08 | Outpatient (CLI) | payer MEDICARE, OTHER | END 2019-10-09 16:09 | disposition home or self-care (01) | LOC: RT 16:08 | PROVIDERS: ATTEND Internal Medicine Cardiovascular Disease | DX: I48.91 Unspecified atrial fibrillation (principal) | CPT/HCPCS: 93005 ==

== ENCOUNTER 2020-02-08 20:30 | Outpatient (CLI) | payer MEDICARE, OTHER | END 2020-02-08 23:59 | disposition short-term general hospital (02) | LOC: EMS 20:30 | PROVIDERS: ATTEND Surgery | DX: S99.911A Unspecified injury of right ankle, initial encounter (principal); Y92.015 Private garage of single-family (private) house as the place of occurrence of the external cause; X58.XXXA Exposure to other specified factors, initial encounter; Y93.01 Activity, walking, marching and hiking | CPT/HCPCS: A0425; A0427 ==

== ENCOUNTER 2020-02-21 15:22 | Emergency (ER) | payer MEDICARE, OTHER ==
--- NOTE | 2020-02-21 15:49 | ED Physician Documentation ---
History of Present Illness - Stated complaint Stated Complaint: RT FOOT PAIN - Chief complaint Chief Complaint: Wound - History obtained from History obtained from: Patient - History of Present Illness Pain level max: 5 Pain level now: 4 - Additonal information Additional information: 69-year-old female presents to the emergency department after a right ankle avulsion fracture and a right fifth metatarsal fracture of a week ago. She started noticing redness and swelling to the dorsum of the right foot a few days ago, started on Keflex. States that she is not improving. No fevers. Worse with walking and better with rest. No vomiting. 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 : None HEENT: None Psych: None Musculoskeletal: None Derm: None - Past Surgical History Past Surgical History: No General: Cholecystectomy HEENT: Tonsil/Adenoidectomy - Present Medications Home Medications: Ambulatory Orders Medication Instructions Recorded Confirmed Flecainide [Tambocar] 1 tab PO BID 10/18/18 12/03/18 Knee Scooter 1 unit TD ONCE #1 10/18/18 12/03/18 Warfarin [Coumadin] 2 tab PO DAILY 10/18/18 12/03/18 Cephalexin [Keflex] 1 cap PO DAILY 11/02/18 12/03/18 bisacodyL [Dulcolax] 1 tab PO DAILY 11/02/18 12/03/18 Ascorbic Acid [Vitamin C] 1 tab PO DAILY 12/03/18 12/03/18 Doxycycline Hyclate 100 mg PO BID #20 capsule 02/21/20 oxyCODONE [Roxicodone] 5 mg PO ONCE 02/21/20 02/21/20 - Allergies Allergies/Adverse Reactions: Allergies Allergy/AdvReac Type Severity Reaction Status Date / Time Penicillins Allergy Rash Verified 02/21/20 16:06 hydromorphone [From Dilaudid] AdvReac Nausea Verified 02/21/20 16:06 - Social History Does the pt smoke?: No Smoking Status: Unknown if ever smoked Does the pt drink ETOH?: Yes Does the pt have substance abuse?: No - Immunizations Immunizations are current?: Yes Immunizations: TDAP >10years/unknown - POLST Patient has POLST: No PD ED PE NORMAL - Vitals Vital signs reviewed: Yes - General General: Alert and oriented X 3, No acute distress - HEENT HEENT: Moist mucous membranes - Derm Derm: Warm and dry - Extremities Extremities: Other (Erythema from the base of the toes to approximately one third of the way up the ankle. Anterior aspect of the ankle and dorsum of the foot. No abscess. Warm to the touch.) - Neuro Neuro: Alert and oriented X 3 - Psych Psych: Normal mood, Normal affect Results - Vitals Vitals: Vital Signs - 24 hr 02/21/20 02/21/20 15:27 17:12 Temperature 36.6 C Heart Rate 78 65 Respiratory 18 16 Rate Blood Pressure 151/64 H 129/60 O2 Saturation 100 99 Oxygen O2 Source Room air - Labs Labs: Laboratory Tests 02/21/20 02/21/20 02/21/20 15:50 15:50 15:50 WBC 4.3 L RBC 4.40 Hgb 13.5 Hct 41.7 MCV 94.8 MCH 30.7 MCHC 32.4 RDW 13.4 Plt Count 188 MPV 11.6 H Neut # (Auto) 2.6 Lymph # (Auto) 1.2 L Dubois # (Auto) 0.4 Eos # (Auto) 0.1 Baso # (Auto) 0.0 Absolute Nucleated RBC 0.00 Nucleated RBC % 0.0 ESR 21 PT INR Sodium 140 Potassium 4.1 Chloride 105 Carbon Dioxide 30 Anion Gap 5.0 L BUN 24 H Creatinine 0.9 Estimated GFR (MDRD) 62 L Glucose 131 H Calcium 8.8 C-Reactive Protein < 1.0 02/21/20 15:50 WBC RBC Hgb Hct MCV MCH MCHC RDW Plt Count MPV Neut # (Auto) Lymph # (Auto) Dubois # (Auto) Eos # (Auto) Baso # (Auto) Absolute Nucleated RBC Nucleated RBC % ESR PT 24.1 H INR 2.2 H Sodium Potassium Chloride Carbon Dioxide Anion Gap BUN Creatinine Estimated GFR (MDRD) Glucose Calcium C-Reactive Protein PD MEDICAL DECISION MAKING - ED course Complexity details: reviewed old records, reviewed results, re-evaluated patient, considered differential, d/w patient ED course: Patient given IV Rocephin. No leukocytosis. Normal sed rate and CRP. Will change doxycycline. Patient counseled regarding signs and symptoms for which I believe and urgent re-evaluation would be necessary. Patient with good understanding of and agreement to plan and is comfortable going home at this time This document was made in part using voice recognition software. While efforts are made to proofread this document, sound alike and grammatical errors may occur. Departure - Departure Disposition: 01 Home, Self Care Clinical Impression: Cellulitis Qualifiers: Site of cellulitis: unspecified site Qualified Code(s): L03.90 - Cellulitis, unspecified Condition: Good Instructions: ED Infec Skin Cellulitis Follow-Up: Ayah Saravia ARNP [Primary Care Provider] - Within 3 Days Prescriptions: Doxycycline Hyclate 100 mg PO BID #20 capsule Comments: We will change you to doxycycline and see how your infection progresses. You were also given a dose of Rocephin today. Return if you worsen. This should start to improve over the next 24 to 36 hours. Discharge Date/Time: 02/21/20 17:12
[2020-02-21 16:25] LABS: BASOPHILS % (AUTO) 0.7 %; EOSINOPHILS # (AUTO) 0.1 10^3/uL (0.0-0.7); EOSINOPHILS % (AUTO) 1.6 %; HGB - HEMOGLOBIN 13.5 g/dL (12.0-16.0); LYMPHOCYTES # (AUTO) 1.2 10^3/uL (1.5-3.5); LYMPHOCYTES % (AUTO) 28.2 %; MEAN CORPUSCULAR HEMOGLOBIN 30.7 pg (27.0-31.0); MEAN CORPUSCULAR HGB CONC 32.4 g/dL (32.0-36.0); MEAN CORPUSCULAR VOLUME 94.8 fL (81.0-99.0); MEAN PLATELET VOLUME 11.6 fL (7.9-10.8); MONOCYTES # (AUTO) 0.4 10^3/uL (0.0-1.0); MONOCYTES % (AUTO) 10.2 %; NEUTROPHILS # (AUTO) 2.6 10^3/uL (1.5-6.6); NEUTROPHILS % (AUTO) 59.1 %; PLT - PLATELET COUNT 188 10^3/uL (130-450); RED CELL DISTRIBUTION WIDTH 13.4 % (12.0-15.0); WHITE BLOOD COUNT 4.3 x10^3/uL (4.8-10.8)
[2020-02-21 16:31] LABS: INR 2.2 (0.8-1.2); PT - PROTHROMBIN TIME 24.1 secs (9.9-12.6)
[2020-02-21 16:48] LABS: BUN - BLOOD UREA NITROGEN 24 mg/dL (6-20); CALCIUM 8.8 mg/dL (8.5-10.3); CARBON DIOXIDE - CO2 30 mmol/L (21-32); CHLORIDE 105 mmol/L (101-111); CREATININE 0.9 mg/dL (0.4-1.0); GLUCOSE 131 mg/dL (70-100); SODIUM 140 mmol/L (135-145)
[2020-02-21 16:51] LABS: CRP - C-REACTIVE PROTEIN < 1.0 mg/dL (0-1.0)
[2020-02-21] MEDS: cefTRIAXone 1 GM VIAL IVP STA (16:53)
[2020-02-21 17:13] VITALS: BP 129/60
== END 2020-02-21 17:12 | disposition home or self-care (01) ==
LOC: ED 15:22
DX: L03.90 Cellulitis, unspecified (principal)
CPT/HCPCS: 36415; 80048; 85025; 85610; 85651; 86140; 96374; 99284

== ENCOUNTER 2020-03-09 13:59 | Outpatient (CLI) | payer MEDICARE, OTHER ==
--- NOTE | 2020-03-09 21:13 | XRAY Report ---
Reason: FRACTURE Procedure Date: 03/09/2020 Accession Number: [id number] / [id number] Procedure: XR - Ankle 3 View RT CPT Code: Final Report FULL RESULT: EXAM: RIGHT ANKLE RADIOGRAPHY. EXAM DATE: 03/09/2020 02:23 PM. CLINICAL HISTORY: Fracture. Rolled ankle and foot 1 month ago. COMPARISON: Foot radiographs 02/20/2018. TECHNIQUE: 3 views. FINDINGS: Bones: Osteopenia. Ill-defined avulsion fracture fragments at the lateral margin of the talus measuring up to 0.5 cm. Minimally displaced 0.9 cm fracture fragment at the medial aspect of the talus. 0.5 cm mildly displaced avulsion fracture dorsal aspect of the talar head. Ill-defined lucency projects at the dorsal aspect of the anterior process of the navicular. Intra-articular 5th metatarsal base fracture partially visualized. Large posterior and plantar calcaneal enthesophytes. Joints: Alignment grossly anatomic on these nonweightbearing views. Small osteophytes throughout the hindfoot and midfoot. Moderate tibiotalar joint effusion. Soft Tissues: Mild to moderate soft tissue swelling throughout the hindfoot, most prominent laterally. IMPRESSION: 1. Osteopenia. 2. Subcentimeter likely avulsion fracture fragments at the lateral aspect talar body and dorsal aspect talar head. 3. Subcentimeter impaction versus avulsion fracture medial margin talar body. 4. Possible subtle avulsion fracture dorsal aspect anterior process of the calcaneus. 5. Intra-articular fracture partially visualized 5th metatarsal base. Recommend dedicated foot radiographs for further evaluation. RADIA
--- NOTE | 2020-03-09 21:13 | XRAY Report ---
Reason: FOOT FX Procedure Date: 03/09/2020 Accession Number: [id number] / [id number] Procedure: XR - Foot 3 View RT CPT Code: Final Report FULL RESULT: EXAM: RIGHT FOOT RADIOGRAPHY EXAM DATE: 03/09/2020 02:23 PM. CLINICAL HISTORY: Foot fracture. Rolled ankle and foot one month ago. COMPARISON: FOOT 3 VIEW BILAT 02/20/2018 4:57 PM. TECHNIQUE: 3 views. FINDINGS: Bones: Horizontal ununited fracture at the base of the fifth metatarsal with adjacent sclerosis. Joints: Mild first MTP osteoarthritis. Mild tibiotalar degenerative joint disease. Calcaneal bone spurs. No subluxation. Soft Tissues: Unremarkable. IMPRESSION: Horizontal ununited fracture at the base of the fifth metatarsal with adjacent sclerosis. See above. RADIA
== END 2020-03-09 14:00 | disposition home or self-care (01) ==
LOC: DI 13:59
PROVIDERS: ATTEND Registered Nurse
DX: S92.151A Displaced avulsion fracture (chip fracture) of right talus, initial encounter for closed fracture (principal); S92.351K Displaced fracture of fifth metatarsal bone, right foot, subsequent encounter for fracture with nonunion; M19.071 Primary osteoarthritis, right ankle and foot; M77.31 Calcaneal spur, right foot; M85.871 Other specified disorders of bone density and structure, right ankle and foot

== ENCOUNTER 2020-03-17 15:34 | Outpatient (CLI) | payer MEDICARE, OTHER ==
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
== END 2020-03-17 15:35 | disposition home or self-care (01) ==
LOC: SC 15:34
PROVIDERS: ATTEND Nurse Practitioner Family
DX: G47.10 Hypersomnia, unspecified (principal); R06.83 Snoring; G47.8 Other sleep disorders; R53.83 Other fatigue; R51 Headache; E66.9 Obesity, unspecified; Z68.37 Body mass index [BMI] 37.0-37.9, adult

== ENCOUNTER 2020-05-17 13:53 | Outpatient (CLI) | payer MEDICARE, OTHER ==
--- NOTE | 2020-05-17 17:22 | XRAY Report ---
PROCEDURE: Ankle 3 View RT INDICATIONS: FRACTURE OF RIGHT ANKLE RIGHT FOOT TECHNIQUE: 3 views of the ankle were acquired. COMPARISON: X-ray foot and ankle 03/09/2020 FINDINGS: Bones: As identified on prior exam, there is a small calcification adjacent to the talus suggestive o f avulsion fracture. There is irregularity of the distal fibula, also suggestive of small avulsion in jury. Both are relatively unchanged. Partially visualized fifth metatarsal base fracture, demonstrate s mild interval healing.. Ankle mortise is normally aligned. No suspicious bony lesions. Soft tissues: No tibiotalar joint effusion. Achilles tendon appears normal. IMPRESSION: Stable alignment of previously identified distal fibular and talar fractures. Stable ali gnment and less prominent appearance of fracture lucency at the fifth metatarsal base fracture. Reviewed by: Alba Perez MD on 05/17/2020 5:20 PM PDT Approved by: Alba Perez MD on 05/17/2020 5:20 PM PDT Station ID: [id number]
--- NOTE | 2020-05-17 18:18 | XRAY Report ---
PROCEDURE: Foot 3 View RT INDICATIONS: FRACTURE OF RIGHT ANKLE AND RIGHT FOOT TECHNIQUE: 3 views of the foot were acquired. COMPARISON: Foot x-ray 03/09/2020. FINDINGS: Bones: There is a healing fracture at the base of the fifth metatarsal. The fracture line remains vis ible but is less distinct. A small amount of bridging callus is demonstrated. No change in alignment. Visualized osseous structures appear osteopenic. There is mild degeneration at the first metatarsoph alangeal joint. Soft tissues: No tibiotalar joint effusion. Achilles tendon appears intact. IMPRESSION: 1. Healing fracture of the fifth metatarsal base as described. Reviewed by: Guru Santos MD on 05/17/2020 6:17 PM PDT Approved by: Guru Santos MD on 05/17/2020 6:17 PM PDT Station ID: [id number]
== END 2020-05-17 13:54 | disposition home or self-care (01) ==
LOC: DI.S 13:53
PROVIDERS: ATTEND Registered Nurse
DX: S82.64XA Nondisplaced fracture of lateral malleolus of right fibula, initial encounter for closed fracture (principal); S92.354D Nondisplaced fracture of fifth metatarsal bone, right foot, subsequent encounter for fracture with routine healing; S92.101A Unspecified fracture of right talus, initial encounter for closed fracture

== ENCOUNTER 2020-05-20 15:34 | Outpatient (CLI) | payer MEDICARE, OTHER | END 2020-05-20 15:35 | disposition home or self-care (01) | LOC: RT 15:34 | PROVIDERS: ATTEND Internal Medicine Cardiovascular Disease | DX: I48.91 Unspecified atrial fibrillation (principal) | CPT/HCPCS: 93005 ==

== ENCOUNTER 2021-03-10 13:22 | Outpatient (CLI) | payer MEDICARE, OTHER | END 2021-03-10 13:23 | disposition home or self-care (01) | LOC: RT 13:22 | PROVIDERS: ATTEND Internal Medicine Cardiovascular Disease | DX: I48.20 Chronic atrial fibrillation, unspecified (principal) | CPT/HCPCS: 93005 ==

== ENCOUNTER 2022-10-27 12:29 | Outpatient (CLI) | payer MEDICARE, OTHER ==
--- NOTE | 2022-10-27 13:28 | Ultrasound Report ---
PROCEDURE: Pelvic w/Transvaginal INDICATIONS: POSTMENOPAUSAL BLEEDING TECHNIQUE: Real-time scanning was performed of the pelvic organs, with image documentation. Additional endovagi nal scanning was necessary due to incomplete visualization of the adnexal and endometrial structures by transabdominal scanning. COMPARISON: None. FINDINGS: Uterus: 6 x 2.6 x 4.8 cm. Endometrium measures up to 18 mm. Fluid is noted in the cervix. Suspected nabothian cyst Ovaries: Right ovary is within normal limits for age. Left ovary is not well seen. Other: No pathologic free fluid. IMPRESSION: In the setting of reported postmenopausal bleeding, thickened heterogeneous endometrium is suspiciou s and endometrial sampling is recommended. Reviewed by: Raj Hayden MD on 10/27/2022 12:26 PM [facility] Approved by: Raj Hayden MD on 10/27/2022 12:26 PM [facility] Station ID: [id number]
== END 2022-10-27 12:30 | disposition home or self-care (01) ==
LOC: DI 12:29
PROVIDERS: ATTEND Registered Nurse
DX: N95.0 Postmenopausal bleeding (principal); R93.89 Abnormal findings on diagnostic imaging of other specified body structures

== ENCOUNTER 2023-04-03 12:43 | Outpatient (CLI) | payer MEDICARE, OTHER | END 2023-04-03 12:44 | disposition home or self-care (01) | LOC: DI 12:43 | PROVIDERS: ATTEND Internal Medicine Cardiovascular Disease | DX: I48.0 Paroxysmal atrial fibrillation (principal); I07.1 Rheumatic tricuspid insufficiency | CPT/HCPCS: 93306 ==

== ENCOUNTER 2023-07-01 17:01 | Emergency (ER) | payer MEDICARE, OTHER ==
[2023-07-01] MEDS ORDERED: PROCAINAMIDE 1,000 MG in SODIUM CHLORIDE 0.9% 240 ML IV STA (17:40)
--- NOTE | 2023-07-01 17:42 | ED Physician Documentation ---
History of Present Illness - Stated complaint Stated Complaint: A-FIB,DIZZY - Chief complaint Chief Complaint: Cardiac - History obtained from History obtained from: Patient, Family - Additonal information Additional information: 73-year-old woman with paroxysmal A-fib, on flecainide for that and also maintained on warfarin with home INR of 2.2 this morning. She has been in A-fib since yesterday with sensation of palpitations, lightheadedness, mild dyspnea. There is no chest pain. She has been chemically but not electrically cardioverted in the past. PD PAST MEDICAL HISTORY - Past Medical History Cardiovascular: Atrial fibrillation, Murmur Respiratory: None Neuro: None Endocrine/Autoimmune: None GI: None HORSE RACER: None : None HEENT: None Psych: None Musculoskeletal: None Derm: None - Past Surgical History Past Surgical History: No General: Cholecystectomy HEENT: Tonsil/Adenoidectomy - Present Medications Home Medications: Ambulatory Orders Medication Instructions Recorded Confirmed Flecainide [Tambocar] 1 tab PO BID 10/18/18 12/03/18 Knee Scooter 1 unit TD ONCE #1 10/18/18 12/03/18 Warfarin [Coumadin] 2 tab PO DAILY 10/18/18 12/03/18 bisacodyL [Dulcolax] 1 tab PO DAILY 11/02/18 12/03/18 cephALEXin [Keflex] 1 cap PO DAILY 11/02/18 12/03/18 Ascorbic Acid [Vitamin C] 1 tab PO DAILY 12/03/18 12/03/18 Doxycycline Hyclate 100 mg PO BID #20 capsule 02/21/20 oxyCODONE [Roxicodone] 5 mg PO ONCE 02/21/20 02/21/20 - Allergies Allergies/Adverse Reactions: Allergies Allergy/AdvReac Type Severity Reaction Status Date / Time Penicillins Allergy Rash Verified 07/01/23 17:06 hydromorphone [From Dilaudid] AdvReac Nausea Verified 07/01/23 17:06 - Social History Does the pt smoke?: No Smoking Status: Unknown if ever smoked Does the pt drink ETOH?: Yes Does the pt have substance abuse?: No - Immunizations Immunizations are current?: Yes Immunizations: TDAP >10years/unknown - POLST Patient has POLST: No PD ED PE NORMAL - Vitals Vital signs reviewed: Yes - General General: Alert and oriented X 3, No acute distress - Cardiac Cardiac: Other (Irregularly irregular without murmur, rate controlled) - Respiratory Respiratory: No respiratory distress, Clear bilaterally - Abdomen Abdomen: Non tender - Neuro Neuro: Alert and oriented X 3, Normal speech Results - Vitals Vitals: Vital Signs - 24 hr 07/01/23 07/01/23 07/01/23 17:06 17:45 18:30 Temperature 36.9 C 37.2 C Heart Rate 105 H 88 81 Respiratory 18 15 15 Rate Blood Pressure 141/62 H 130/89 H 117/73 O2 Saturation 99 100 Oxygen O2 Source Room air - EKG (time done) 1713 EKG releavant findings:: EKG personally interpreted by author of this note. Relevant findings are: Rate: Rate (enter#) Rhythm: Atrial flutter [place]: LAD Intervals: No: Prolonged QT QRS: Normal Ischemia: Normal ST segments 1908 EKG releavant findings:: EKG personally interpreted by author of this note. Relevant findings are: Rate: Rate (enter#) (54) Rhythm: NSR [place]: LAD Intervals: Prolonged DE QRS: Normal Ischemia: Normal ST segments - Labs Labs: Laboratory Tests 07/01/23 07/01/23 07/01/23 18:00 18:00 18:34 WBC 4.8 RBC 4.59 Hgb 13.9 Hct 43.1 MCV 93.9 MCH 30.3 MCHC 32.3 RDW 13.8 Plt Count 129 L MPV 13.0 H Neut # (Auto) 2.2 Lymph # (Auto) 2.0 [place] # (Auto) 0.4 Eos # (Auto) 0.1 Baso # (Auto) 0.0 Absolute Nucleated RBC 0.00 Nucleated RBC % 0.0 PT 20.2 H INR 1.9 H Sodium 141 Potassium 4.1 Chloride 104 Carbon Dioxide 32 Anion Gap 5.0 L BUN 19 Creatinine 1.0 Estimated GFR (MDRD) 55 L Glucose 99 Calcium 9.6 Magnesium 2.0 TSH 3.18 PD Medical Decision Making - ED course ED course: 73-year-old woman presents with symptomatic atrial fibrillation. No ischemic chest pain. She is anticoagulated and therapeutic. She is on flecainide. We will start procainamide drip noting that her QTc is actually on the short side on her EKG. She would like to avoid electrical cardioversion but is willing to consider if chemical cardioversion is not effective. 73-year-old woman with symptomatic atrial fibrillation who is anticoagulated. About half of the way into procainamide drip converted to sinus rhythm. Feeling better. CBC, BMP, TSH normal. Departure - Departure Disposition: Home, Self Care Clinical Impression: Atrial fibrillation Qualifiers: Atrial fibrillation type: paroxysmal Qualified Code(s): I48.0 - Paroxysmal atrial fibrillation Condition: Good Record reviewed to determine appropriate education?: Yes Instructions: ED Paroxysmal Atrial Flutter Comments: INR today 1.9 for Our lab, labs otherwise unremarkable. TSH normal. Okay to co ntinue home medications as postconversion your QTc is 416. 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 Return for new or worsening symptoms.
[2023-07-01] MEDS ORDERED: PROCAINAMIDE 1,000 MG/10 ML SYRINGE ONE (18:13)
[2023-07-01 18:24] LABS: BASOPHILS % (AUTO) 0.6 %; EOSINOPHILS # (AUTO) 0.1 10^3/uL (0.0-0.7); EOSINOPHILS % (AUTO) 2.3 %; HCT - HEMATOCRIT 43.1 % (37.0-47.0); HGB - HEMOGLOBIN 13.9 g/dL (12.0-16.0); LYMPHOCYTES % (AUTO) 42.6 %; MEAN CORPUSCULAR HEMOGLOBIN 30.3 pg (27.0-31.0); MEAN CORPUSCULAR HGB CONC 32.3 g/dL (32.0-36.0); MEAN CORPUSCULAR VOLUME 93.9 fL (81.0-99.0); MONOCYTES # (AUTO) 0.4 10^3/uL (0.0-1.0); NEUTROPHILS # (AUTO) 2.2 10^3/uL (1.5-6.6); NEUTROPHILS % (AUTO) 45.5 %; PLT - PLATELET COUNT 129 10^3/uL (130-450); RED BLOOD COUNT 4.59 10^6/uL (4.20-5.40); RED CELL DISTRIBUTION WIDTH 13.8 % (12.0-15.0); WHITE BLOOD COUNT 4.8 x10^3/uL (4.8-10.8)
[2023-07-01 18:34] VITALS: BP 117/73; O2SAT 100
[2023-07-01 18:55] LABS: THYROID STIMULATING HORMONE 3.18 uIU/mL (0.34-5.60)
[2023-07-01 18:59] LABS: INR 1.9 (0.8-1.2); PT - PROTHROMBIN TIME 20.2 secs (9.9-12.6)
[2023-07-01 19:23] LABS: CALCIUM 9.6 mg/dL (8.5-10.3); POTASSIUM 4.1 mmol/L (3.5-4.5)
== END 2023-07-01 19:42 | disposition home or self-care (01) ==
LOC: ED 17:01
DX: I48.0 Paroxysmal atrial fibrillation (principal); Z79.01 Long term (current) use of anticoagulants
CPT/HCPCS: 36415; 80048; 83735; 84443; 85025; 85610; 93005; 96365; 99284; 99285; J2690

== ENCOUNTER 2023-08-22 12:32 | Outpatient (CLI) | payer MEDICARE, OTHER | END 2023-08-22 12:33 | disposition home or self-care (01) | LOC: RT 12:32 | PROVIDERS: ATTEND Internal Medicine Cardiovascular Disease | DX: I48.0 Paroxysmal atrial fibrillation (principal); Z79.899 Other long term (current) drug therapy | CPT/HCPCS: 93005 ==

== ENCOUNTER 2024-03-14 13:39 | Outpatient (CLI) | payer MEDICARE ==
--- NOTE | 2024-03-14 14:36 | XRAY Report ---
Chest 2V HISTORY: DYSPNEA COMPARISON: 04/27/2017. TECHNIQUE: 2 views of the chest are submitted for interpretation. FINDINGS/IMPRESSION: No pleural effusion or pneumothorax. No pulmonary edema or focal consolidation. Normal cardiomediastinal silhouette. Calcification of anterior longitudinal ligament of the thoracic spine. Reviewed by: Sheryl Snyder MD on 03/14/2024 2:35 PM PDT Approved by: Sheryl Snyder MD on 03/14/2024 2:35 PM PDT Station ID: [email or web address]
[2024-03-14 19:59] LABS: BASOPHILS % (AUTO) 0.7 %; EOSINOPHILS # (AUTO) 0.1 10^3/uL (0.0-0.7); HCT - HEMATOCRIT 40.3 % (37.0-47.0); HGB - HEMOGLOBIN 12.9 g/dL (12.0-16.0); LYMPHOCYTES # (AUTO) 1.3 10^3/uL (1.5-3.5); LYMPHOCYTES % (AUTO) 32.2 %; MEAN CORPUSCULAR HEMOGLOBIN 30.8 pg (27.0-31.0); MEAN CORPUSCULAR VOLUME 96.2 fL (81.0-99.0); MEAN PLATELET VOLUME 13.3 fL (7.9-10.8); MONOCYTES # (AUTO) 0.4 10^3/uL (0.0-1.0); MONOCYTES % (AUTO) 9.3 %; NEUTROPHILS # (AUTO) 2.3 10^3/uL (1.5-6.6); NEUTROPHILS % (AUTO) 55.6 %; PLT - PLATELET COUNT 111 10^3/uL (130-450); RED BLOOD COUNT 4.19 10^6/uL (4.20-5.40); RED CELL DISTRIBUTION WIDTH 13.4 % (12.0-15.0); WHITE BLOOD COUNT 4.1 x10^3/uL (4.8-10.8)
[2024-03-14 20:08] LABS: ALBUMIN 4.3 g/dL (3.2-5.5); ALBUMIN/GLOBULIN RATIO 1.9 (1.0-2.2); BILIRUBIN,TOTAL 0.8 mg/dL (0.2-1.0); CALCIUM 9.8 mg/dL (8.5-10.3); POTASSIUM 4.3 mmol/L (3.5-4.5); TOTAL PROTEIN 6.6 g/dL (6.4-8.9)
== END 2024-03-14 13:40 | disposition home or self-care (01) ==
LOC: DI.S 13:39
PROVIDERS: ATTEND Registered Nurse
DX: R06.00 Dyspnea, unspecified (principal); M48.8X4 Other specified spondylopathies, thoracic region
CPT/HCPCS: 36415; 80053; 85025; 85379